=== PATIENT | male | born 1930 ===

== ENCOUNTER 2019-04-26 08:49 | Emergency (ER) | payer MEDICARE ==
--- NOTE | 2019-04-26 09:26 | ED ---
Altered Mental Status - HPI Summary HPI Summary: 89 year old M arriving via ambulance from [facility] complains of altered mental status for 3 days. Patient is less agitated than baseline per [facility] staff which is abnormal for him. Patient usually agitated with staff during vital sign checks. EMS reports decreased appetite. Symptoms aggravated by nothing. Symptoms alleviated by nothing. Medications reviewed. On antidepressant. No Hx atrial fibrillation. Hx constipation, depression, dementia, hypothyroidism, herpesviral vesicular dermatitis, bullous pemphigoid. - History Of Current Complaint Chief Complaint: EDAltMentalStatus Stated Complaint: GENERAL ILLNESS/AMS PER EMS Time Seen by Provider: 04/26/19 09:04 Hx Obtained From: EMS, Other: - [facility] staff Onset/Duration: Still Present Timing: Constant, Lasting Days - 3 Aggravating Factor(s): Nothing Alleviating Factor(s): Nothing - Allergies/Home Medications Allergies/Adverse Reactions: Allergies Allergy/AdvReac Type Severity Reaction Status Date / Time No Known Allergies Allergy Verified 04/26/19 09:13 PMH/Surg Hx/FS Hx/Imm Hx Previously Healthy: No - hx hypothyroidism, herpesviral vesicular dermatitis, bullous pemphigoid Endocrine/Hematology History: Reports: Hx Thyroid Disease - HYPO, Other Endocrine/Hematological Disorders - vitamin D deficiency Cardiovascular History: Denies: Hx Atrial Fibrillation Neurological History: Reports: Hx Dementia Psychiatric History: Reports: Hx Depression, Other Psychiatric Issues/Disorders - insomnia Infectious Disease History: Unable to Obtain/Confirm Infectious Disease History: Denies: Traveled Outside the [place] in Last 30 Days - Family History Known Family History: Positive: Unknown - secondary to hx dementia - Social History Alcohol Use: None Hx Substance Use: No Substance Use Type: Reports: None Hx Tobacco Use: No Smoking Status (MU): Unknown if Ever Smoked Review of Systems Positive: Other - decreased appetite Neurological: Other - altered mental status All Other Systems Reviewed And Are Negative: Yes Physical Exam - Summary Physical Exam Summary: Constitutional: Elderly, Alert. (-) Distressed Skin: Warm, Dry HENT: Normocephalic; Atraumatic Eyes: Conjunctiva normal Neck: Musculoskeletal ROM normal neck. (-) JVD, (-) Stridor, (-) Nuchal rigidity Cardio: Rhythm irregular, rate normal, Heart sounds normal; Intact distal pulses ; Radial pulses are 2+ and symmetric. (-) Murmur Pulmonary/Chest wall: Effort normal. (-) Respiratory distress, (-) Wheezes, (-) Rales Abd: Soft, (-) tenderness, mild distension, (-) Guarding, (-) Rebound Musculoskeletal: (-) Edema Lymph: (-) Cervical adenopathy Neuro: Alert, Oriented to person but not place or time, answers in one-word yes or no responses, no focal deficits, minimally cooperative with neuro exam Psych: Mood and affect Normal GCS: 13 Triage Information Reviewed: Yes Vital Signs On Initial Exam: Initial Vitals Temp Pulse Resp BP Pulse Ox 96.9 F 103 19 132/103 94 04/26/19 09:09 04/26/19 09:09 04/26/19 09:09 04/26/19 09:09 04/26/19 09:09 Vital Signs Reviewed: Yes Procedures - Sedation Patient Received Moderate/Deep Sedation with Procedure: No Diagnostics - Vital Signs Vital Signs Temp Pulse Resp BP Pulse Ox 04/26/19 09:09 96.9 F 103 19 132/103 94 - Laboratory Result Diagrams: 04/26/19 09:47 04/26/19 09:47 Lab Statement: Any lab studies that have been ordered have been reviewed, and results considered in the medical decision making process. - Radiology CXR Radiology Interpretation Completed By: Radiologist Summary of Radiographic Findings: LOW LUNG VOLUMES WITH PATCHY ATELECTASIS VERSUS CONSOLIDATION OF THE LEFT LUNG BASE. ED physician has reviewed this imaging report. - CT Brain CT Interpretation Completed By: Radiologist Summary of CT Findings: 1. NO EVIDENCE FOR ACUTE INTRACRANIAL ABNORMALITY. 2. 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 3. EFFUSION WITHIN THE RIGHT MASTOID AIR CELLS. ED physician has reviewed this imaging report. - EKG 1017 Cardiac Rate: NL - 79 BPM EKG Rhythm: Sinus Rhythm Summary of EKG Findings: An EKG at 1017 reveals normal sinus rhythm 79 BPM. There is significant artifact obscuring further interpretation. No STEMI. No acute changes. ED physician has reviewed and interpreted this EKG. Re-Evaluation - Re-Evaluation First Eval Re-Evaluation Time: 11:10 Change: Improved - HR low 100's, CXR w LLL PNA. Given azithro and ceftriaxone. Trop 0.03 Second Eval Re-Evaluation Time: 12:42 Comment: spoke with sister Tete who is next of kin. she states that she hasn' t talked to patient in a year and is unsure of his wishes and will have to take some time to think about his wishes Third Eval Re-Evaluation Time: 12:45 Comment: spoke with Dr. Sanchez nephrology at [facility] who accepts patient for transfer, requests patient on maintenance fluids and rivero, would like patient to be accepted to ICU. [facility] ICU will call back Fourth Eval Re-Evaluation Time: 13:15 Comment: spoke with Dr. Kirkland ICU at [facility] who accepts patient. they will call back with a bed assignment Altered Mental Statu Course/Dx - Course Course Of Treatment: 89 y/o male w hx dementia, hypothyroidism pw AMS. - head CT w/o acute pathology, CXR w ?LLL PNA. Given azithro/ceftriaxone. -Labs notable for new onset renal failure with a creatinine of 15, potassium 7.2. BUN 113 likely contributing to AMS/somnolence. Patient is given insulin, glucose, albuterol and calcium. Also noted to have TSH elevated at 7.9, free T4 0.92. - D/w sister Tete guarding intervention such as dialysis. She is unsure if he wanted at this time, but is open to the idea. We'll transport [facility]. Patient had greater than 900 cc of fluid on his bladder scan, likely urinary retention causing acute renal obstruction. Rivero placed. - Diagnoses Provider Diagnoses: Acute renal failure, Hyperkalemia, Altered mental status, Urinary retention - Critical Care Time Critical Care Time: 30-74 min - Upon my evaluation, this patient had a high probability of imminent or life-threatening deterioration due to acute renal failure, altered mental status which required my direct attention, intervention , and personal management. I have personally provided 70 minutes of critical care time exclusive of time spent on separately billable procedures. Time includes review of laboratory data, radiology results, discussion with consultants, and monitoring for potential decompensation. Interventions were performed as documented above. Discharge ED - Sign-Out/Discharge Documenting (check all that apply): Patient Departure - Discharge Plan Condition: Stable Disposition: TRANS HIGHER LVL OF CARE FAC Referrals: No Primary Care Phys,NOPCP [Medical Doctor] - - Billing Disposition and Condition Condition: STABLE Disposition: Trans Higher Lvl of Care Fac - Attestation Statements Document Initiated by Scribe: Yes Documenting Scribe: Malena Bradford Provider For Whom Scribe is Documenting (Include Credential): Nato Guaman MD Scribe Attestation: I, Malena Bradford, scribed for Nato Guaman MD on 04/26/19 at 1354. Scribe Documentation Reviewed: Yes Provider Attestation: The documentation as recorded by the scribeMalena accurately reflects the service I personally performed and the decisions made by Nato keita MD Status of Scribe Document: Viewed
[2019-04-26 09:58] LABS: ABS Basophils 0.1 10^3/ul (0-0.2); ABS Lymphocytes 1.2 10^3/ul (1.0-4.8); ABS Monocytes 0.7 10^3/ul (0-0.8); ABS Neutrophils 7.9 10^3/ul (1.5-7.7); Eosinophil % 0.1 %; Hematocrit 40 % (42-52); Hemoglobin 13.7 g/dL (14.0-18.0); Lymphocyte % 12.5 %; Mean Corpuscular HGB Conc 34 g/dL (31-36); Mean Corpuscular Hemoglobin 33 pg (27-31); Mean Corpuscular Volume 98 fL (80-94); Platelet Count 393 10^3/uL (150-450); Red Cell Distribution Width 14 % (10-15)
[2019-04-26] MEDS ORDERED: NS 0.9% 1000 ML** 1,000 ML IV ONE (10:12)
[2019-04-26 10:20] LABS: Troponin I 0.03 ng/mL (<0.03)
[2019-04-26 10:42] LABS: TSH (Thyroid Stimulating Horm) 7.97 mcIU/mL (0.34-5.60)
[2019-04-26] MEDS ORDERED: Azithromycin 500 mg/250 ml NS 500 MG/250 ML BAG IVPB ONE (11:13)
[2019-04-26 11:37] LABS: T4, Total 3.55 mcg/dL (6.09-12.23)
[2019-04-26 11:40] LABS: Albumin 3.1 g/dL (3.2-5.2); CO2 Carbon Dioxide 20 mmol/L (22-32); Calcium 9.5 mg/dL (8.6-10.3); Chloride 96 mmol/L (101-111); Sodium 134 mmol/L (135-145)
[2019-04-26 11:43] LABS: Anion Gap 18 mmol/L (2-11)
[2019-04-26 11:44] LABS: Potassium 7.2 mmol/L (3.5-5.0); Salicylate < 2.50 mg/dL (<30)
[2019-04-26 11:46] LABS: ALT 7 U/L (7-52); AST 9 U/L (13-39); Alkaline Phosphatase 78 U/L (34-104); BUN/Creatinine Ratio 7.4 (8-20); Blood Urea Nitrogen 113 mg/dL (6-24); EGFR African American 3.7 (>60); Glucose 88 mg/dL (70-100)
[2019-04-26] MEDS ORDERED: Albuterol/Ipratropium NEB.SOL* Albuterol 2.5 MG/Ipratropium 0.5 MG 3 ML INH ONE (11:52)
[2019-04-26] MEDS ORDERED: cefTRIAXone(*) 1 GM in NS 0.9% 50 ML* 50 ML IVPB ONE (12:00)
[2019-04-26 12:25] LABS: Albumin/Globulin Ratio 0.9 (1-3); Globulin 3.3 g/dL (2-4); Total Protein 6.4 g/dL (6.4-8.9)
[2019-04-26] MEDS ORDERED: Calcium Gluconate INJ* 1 GM in NS 0.9% 100 ML* 100 ML IVPB ONE (12:26)
[2019-04-26] MEDS ORDERED: Insulin REGULAR(*) 1 UNITS UNIT IV PUSH ONE (12:26)
[2019-04-26] MEDS ORDERED: Dextrose 50% VIAL 50 ml IV ONE (12:30)
[2019-04-26] MEDS ORDERED: NS 0.9% 100 ML* 100 ML ONE (12:37)
[2019-04-26] MEDS ORDERED: NS 0.9% 1000 ML** 1,000 ML IV SCH (13:00)
[2019-04-26] MEDS ORDERED: Dextrose 50% Syringe 50 ML* 25 GM/50 ML SYRINGE IV PUSH ONE (13:00)
[2019-04-26 13:03] LABS: Free T4 0.92 ng/dL (0.61-1.12)
[2019-04-26 14:49] LABS: Urine Appearance Cloudy; Urine Bilirubin Negative (Negative); Urine Blood 3+ (Negative); Urine Glucose 1+(50 mg/dL) (Negative); Urine Ketones Negative (Negative); Urine Nitrite Negative (Negative); Urine Protein 2+(100 mg/dL) (Negative); Urine Specific Gravity 1.009 (1.010-1.030); Urine Urobilinogen Negative (Negative)
[2019-04-26 14:51] LABS: Urine Bacteria Absent (Absent); Urine Red Blood Cell 3+(>10/hpf) (Absent); Urine White Blood Cell 3+(>20/hpf) (Absent)
[2019-04-26 15:22] LABS: Urine Color Red
[2019-04-26 16:16] VITALS: BP 120/61
[2019-04-26] MEDS ORDERED: Dextrose 50% Syringe 50 ML* 25 GM/50 ML SYRINGE ONE (16:26)
== END 2019-04-26 16:16 | disposition short-term general hospital (02) ==
LOC: ED 08:49
DX: N17.9 Acute kidney failure, unspecified (principal); E87.5 Hyperkalemia; R41.82 Altered mental status, unspecified; R33.9 Retention of urine, unspecified; E03.9 Hypothyroidism, unspecified; F03.90 Unspecified dementia, unspecified severity, without behavioral disturbance, psychotic disturbance, mood disturbance, and anxiety; F32.9 Major depressive disorder, single episode, unspecified; G47.00 Insomnia, unspecified
CPT/HCPCS: 36415; 70450; 71045; 80053; 80329; 81003; 81015; 83605; 84436; 84439; 84443; 84484; 85025; 87040; 87086; 93005; 96361; 96365; 96368; 96375; 99284; A9270-GY; G0480; J0456; J0610; J0696

== ENCOUNTER 2019-11-07 01:40 | Inpatient (IN) ==
[2019-11-07 02:27] LABS: ABS Lymphocytes 0.2 10^3/ul (1.0-4.8); ABS Monocytes 0.1 10^3/ul (0-0.8); ABS Neutrophils 6.2 10^3/ul (1.5-7.7); Hematocrit 38 % (42-52); Lymphocyte % 3.2 %; Mean Corpuscular HGB Conc 34 g/dL (31-36); Mean Corpuscular Hemoglobin 31 pg (27-31); Mean Corpuscular Volume 91 fL (80-94); Mean Platelet Volume 6.9 fL (7.4-10.4); Nucleated Red Blood Cells % 0.1; Platelet Count 237 10^3/uL (150-450); Red Blood Count 4.15 10^6 /uL (4.18-5.48); Red Cell Distribution Width 16 % (10-15); White Blood Count 6.5 10^3/uL (3.5-10.8)
[2019-11-07 02:42] LABS: ALT 29 U/L (7-52); AST 51 U/L (13-39); Albumin 3.3 g/dL (3.2-5.2); Albumin/Globulin Ratio 0.9 (1-3); Alkaline Phosphatase 100 U/L (34-104); Anion Gap 16 mmol/L (2-11); BUN/Creatinine Ratio 14.2 (8-20); Blood Urea Nitrogen 32 mg/dL (6-24); CO2 Carbon Dioxide 17 mmol/L (22-32); Calcium 9.6 mg/dL (8.6-10.3); Chloride 104 mmol/L (101-111); EGFR African American 33.5 (>60); EGFR Non-African American 27.7 (>60); Globulin 3.5 g/dL (2-4); Glucose 103 mg/dL (70-100); Potassium 4.5 mmol/L (3.5-5.0); Sodium 137 mmol/L (135-145); Total Protein 6.8 g/dL (6.4-8.9)
[2019-11-07 02:47] LABS: Troponin I 0.07 ng/mL (<0.03)
[2019-11-07] MEDS: NS 0.9% 1000 ml BAG 2,000 ML IV ONE ×2 (02:51→04:25)
[2019-11-07 04:05] LABS: Urine Appearance Turbid; Urine Bilirubin Negative (Negative); Urine Blood 3+ (Negative); Urine Color Yellow; Urine Glucose Negative (Negative); Urine Ketones Trace (Negative); Urine Nitrite Negative (Negative); Urine Protein 2+(100 mg/dL) (Negative); Urine Specific Gravity 1.013 (1.010-1.030); Urine Urobilinogen Negative (Negative)
[2019-11-07] MEDS ORDERED: cefTRIAXone 1 gm/50 mL NS BAG 1 GM/50 ML BAG IV ONE (04:12)
[2019-11-07 04:41] LABS: Activated Partial Thrombo Time 32.2 seconds (26.0-38.0); INR 1.25 (0.82-1.09)
[2019-11-07 04:54] LABS: Troponin I 0.08 ng/mL (<0.03)
[2019-11-07] MEDS ORDERED: NS 0.9% 1000 ml BAG 1,000 ML IV ONE ×2 (05:06→23:00)
[2019-11-07 06:11] LABS: Urine Bacteria Absent (Absent); Urine Red Blood Cell 3+(>10/hpf) (Absent); Urine White Blood Cell 3+(>20/hpf) (Absent)
[2019-11-07] MEDS ORDERED: NS 0.9% 1000 ml BAG 1,000 ML IV SCH (06:30)
[2019-11-07] MEDS: Norepinephrine 16MCG/ML IVPRE 4,000 MCG/250 ML BAG IV SCH ×4 (06:33→15:14)
[2019-11-07] MEDS: Heparin 5000 UNITS/ML 1 mL VIAL SUBCUT SCH ×2 (08:50→21:04)
[2019-11-07] MEDS: Levothyroxine 100 MCG/5 ML VIAL IV SCH (08:56)
[2019-11-07] MEDS ORDERED: cefTRIAXone 1 gm/50 mL NS BAG 1 GM/50 ML BAG IVPB ONE (09:00)
[2019-11-07] MEDS: Lactated Ringers 1000 ml BAG 1,000 ML IV SCH ×2 (10:09→18:07)
[2019-11-07 10:57] LABS: Troponin I 0.17 ng/mL (<0.03)
[2019-11-07] MEDS: Hydrocortisone INJ 100 MG/2ML 2 ML VIAL IV SCH ×3 (11:57→23:05)
[2019-11-07 13:46] LABS: BUN/Creatinine Ratio 18.2 (8-20); Calcium 7.6 mg/dL (8.6-10.3); EGFR African American 41.4 (>60); EGFR Non-African American 34.2 (>60); Potassium 4.1 mmol/L (3.5-5.0)
[2019-11-07] MEDS ORDERED: Nitro 2% OINT (Nitroglycerin) 1 INCH/PAK ONE (16:20)
[2019-11-07 17:09] LABS: Troponin I 0.37 ng/mL (<0.03)
[2019-11-07] MEDS: Meropenem 500MG PREMIX(*) 500 MG/50 ML BAG IV SCH (18:07)
[2019-11-07] MEDS ORDERED: Ondansetron 4 mg VIAL 2 MG/ML 2 ml VIAL IV ONE (23:11)
[2019-11-07] MEDS ORDERED: Ondansetron 4 mg VIAL 2 MG/ML 2 ml VIAL ONE (23:14)
[2019-11-07 23:23] LABS: Hematocrit 35 % (42-52); Hemoglobin 11.4 g/dL (14.0-18.0); Mean Corpuscular HGB Conc 32 g/dL (31-36); Mean Corpuscular Hemoglobin 30 pg (27-31); Mean Corpuscular Volume 94 fL (80-94); Mean Platelet Volume 7.2 fL (7.4-10.4); Platelet Count 124 10^3/uL (150-450); Red Blood Count 3.75 10^6 /uL (4.18-5.48); Red Cell Distribution Width 18 % (10-15)
[2019-11-07 23:31] LABS: Albumin 2.8 g/dL (3.2-5.2); Calcium 7.6 mg/dL (8.6-10.3); Potassium 4.7 mmol/L (3.5-5.0); Total Bilirubin 0.4 mg/dL (0.2-1.0)
[2019-11-07 23:36] LABS: BUN/Creatinine Ratio 22.9 (8-20); EGFR African American 50.7 (>60); EGFR Non-African American 41.9 (>60); Globulin 2.8 g/dL (2-4); Total Protein 5.6 g/dL (6.4-8.9)
[2019-11-07] MEDS ORDERED: Lactated Ringers 1000 ml BAG 1,000 ML IV ONE (23:45)
[2019-11-08] MEDS: Norepinephrine 16MCG/ML IVPRE 4,000 MCG/250 ML BAG IV SCH ×7 (02:57→22:01)
[2019-11-08] MEDS: Lactated Ringers 1000 ml BAG 1,000 ML IV SCH ×3 (02:57→18:06)
[2019-11-08] MEDS: Vitamins A & D OINT 42.5 GM TUBE TOPICAL PRN ×2 (03:21→21:55)
[2019-11-08] MEDS ORDERED: cefTRIAXone 1 gm/50 mL NS BAG 1 GM/50 ML BAG IVPB SCH (05:00)
[2019-11-08] MEDS: Hydrocortisone INJ 100 MG/2ML 2 ML VIAL IV SCH ×3 (05:21→21:48)
[2019-11-08] MEDS: Levothyroxine 100 MCG/5 ML VIAL IV SCH (05:22)
[2019-11-08 05:37] LABS: Hematocrit 32 % (42-52); Hemoglobin 10.6 g/dL (14.0-18.0); Mean Corpuscular HGB Conc 33 g/dL (31-36); Mean Corpuscular Hemoglobin 31 pg (27-31); Mean Corpuscular Volume 93 fL (80-94); Mean Platelet Volume 7.5 fL (7.4-10.4); Platelet Count 123 10^3/uL (150-450); Red Blood Count 3.45 10^6 /uL (4.18-5.48); Red Cell Distribution Width 17 % (10-15); White Blood Count 32.6 10^3/uL (3.5-10.8)
[2019-11-08 05:50] LABS: ABS Basophils 0.1 10^3/ul (0-0.2); ABS Eosinophils 0.2 10^3/ul (0-0.6); ABS Lymphocytes 0.9 10^3/ul (1.0-4.8); ABS Monocytes 1.3 10^3/ul (0-0.8); ABS Neutrophils 31.5 10^3/ul (1.5-7.7); Eosinophil % 0.6 %; Lymphocyte % 2.6 %
[2019-11-08 05:52] LABS: Albumin 2.5 g/dL (3.2-5.2); Albumin/Globulin Ratio 0.9 (1-3); BUN/Creatinine Ratio 24.4 (8-20); Calcium 7.3 mg/dL (8.6-10.3); EGFR African American 60.4 (>60); EGFR Non-African American 49.9 (>60); Globulin 2.9 g/dL (2-4); Potassium 4.6 mmol/L (3.5-5.0); Total Bilirubin 0.3 mg/dL (0.2-1.0); Total Protein 5.4 g/dL (6.4-8.9)
[2019-11-08] MEDS: Meropenem 500MG PREMIX(*) 500 MG/50 ML BAG IV SCH ×2 (06:08→18:13)
[2019-11-08] MEDS ORDERED: Lactated Ringers 1000 ml BAG 1,000 ML IV ONE (06:30)
[2019-11-08 06:31] LABS: ABS Eosinophils 0.1 10^3/ul (0-0.6); ABS Lymphocytes 0.7 10^3/ul (1.0-4.8); ABS Neutrophils 30.7 10^3/ul (1.5-7.7); Eosinophil % 0.4 %; Lymphocyte % 2.2 %
[2019-11-08] MEDS: Heparin 5000 UNITS/ML 1 mL VIAL SUBCUT SCH ×2 (08:29→21:50)
[2019-11-08] MEDS ORDERED: Amikacin IV 500 MG/2 ML VIAL IVPB ONE (08:39)
[2019-11-08] MEDS ORDERED: NS 0.9% IVPB ONE (09:00)
[2019-11-08] MEDS ORDERED: AMIKACIN IVPB ONE (09:00)
[2019-11-08] MEDS ORDERED: cefTRIAXone 2 GM ADDV.VIAL 2 GM in NS 0.9% 100 ml BAG 100 ML IV SCH (09:00)
[2019-11-08] MEDS ORDERED: Lidocaine 4% GEL 10 GM TUBE TOPICAL ONE (09:36)
[2019-11-08] MEDS ORDERED: Haloperidol 5 mg/ml SDV IV/IM 5 MG/ML AMP ONE (11:03)
[2019-11-08] MEDS ORDERED: fentaNYL 100 mcg/2 ml 50 MCG/ML VIAL ONE (11:46)
[2019-11-08] MEDS ORDERED: Lorazepam PYXIS KEY ONE (12:07)
[2019-11-08] MEDS ORDERED: LORazepam 2 mg VIAL 1 ml ONE (12:07)
[2019-11-08] MEDS: Pantoprazole VIAL 40 MG VIAL IV SCH (16:03)
[2019-11-08] MEDS ORDERED: Perflutren Lipid Microsphere 3 ML VIAL ONE (16:14)
[2019-11-08] MEDS ORDERED: Albuterol/Ipratropium NEB.SOL (2.5/0.5 MG) 3 ML NEB.SOLN INH PRN (18:17)
[2019-11-08] MEDS ORDERED: Albuterol/Ipratropium NEB.SOL (2.5/0.5 MG) 3 ML NEB.SOLN ONE (18:26)
[2019-11-08] MEDS ORDERED: Hydrocortisone INJ 100 MG/2ML 2 ML VIAL IM SCH (19:00)
[2019-11-08] MEDS: Acetaminophen IV 1 GM/100ML 100 ML IVPB SCH (21:44)
[2019-11-09] MEDS: Atropine 1% (ORAL/SL) 15 ML BTL SL PRN (04:04)
[2019-11-09] MEDS: Lactated Ringers 1000 ml BAG 1,000 ML IV SCH (04:59)
[2019-11-09] MEDS: Norepinephrine 16MCG/ML IVPRE 4,000 MCG/250 ML BAG IV SCH (05:51)
[2019-11-09] MEDS: Hydrocortisone INJ 100 MG/2ML 2 ML VIAL IV SCH ×3 (05:59→20:12)
[2019-11-09] MEDS: Acetaminophen IV 1 GM/100ML 100 ML IVPB SCH ×2 (06:21→14:11)
[2019-11-09] MEDS: Levothyroxine 100 MCG/5 ML VIAL IV SCH (06:26)
[2019-11-09] MEDS: Meropenem 500MG PREMIX(*) 500 MG/50 ML BAG IV SCH (06:42)
[2019-11-09 07:00] LABS: BUN/Creatinine Ratio 34.6 (8-20); EGFR African American 108.8 (>60); EGFR Non-African American 89.9 (>60); Magnesium 1.5 mg/dL (1.9-2.7); Potassium 3.6 mmol/L (3.5-5.0)
[2019-11-09 07:10] LABS: Hematocrit 29 % (42-52); Hemoglobin 9.9 g/dL (14.0-18.0); Mean Corpuscular HGB Conc 34 g/dL (31-36); Mean Corpuscular Hemoglobin 31 pg (27-31); Mean Corpuscular Volume 91 fL (80-94); Red Blood Count 3.21 10^6 /uL (4.18-5.48); Red Cell Distribution Width 17 % (10-15); White Blood Count 30.8 10^3/uL (3.5-10.8)
[2019-11-09] MEDS ORDERED: Magnesium Sulf 4 GM/100 ML IV 4,000 MG/100 ML BAG IVPB ONE (07:28)
[2019-11-09 07:49] LABS: Calcium 5.7 mg/dL (8.6-10.3)
[2019-11-09 08:33] LABS: ABS Basophils 0.1 10^3/ul (0-0.2); ABS Eosinophils 0.2 10^3/ul (0-0.6); ABS Lymphocytes 0.7 10^3/ul (1.0-4.8); ABS Monocytes 0.6 10^3/ul (0-0.8); ABS Neutrophils 29.1 10^3/ul (1.5-7.7); Eosinophil % 0.7 %; Lymphocyte % 2.4 %; Platelet Count 73 10^3/uL (150-450)
[2019-11-09] MEDS: Heparin 5000 UNITS/ML 1 mL VIAL SUBCUT SCH ×2 (08:38→20:12)
[2019-11-09] MEDS: Pantoprazole VIAL 40 MG VIAL IV SCH (08:38)
[2019-11-09] MEDS ORDERED: Potassium Chloride LIQUID 20 MEQ/15 ML LIQUID PO ONE (08:40)
[2019-11-09] MEDS: KCL 20 MEQ/100 ML IVPREMIX 20 MEQ/100 ML BAG IV SCH ×2 (10:20→12:48)
[2019-11-09] MEDS: Albuterol/Ipratropium NEB.SOL (2.5/0.5 MG) 3 ML NEB.SOLN INH SCH ×2 (10:30→15:49)
[2019-11-09] MEDS: Vitamins A & D OINT 42.5 GM TUBE TOPICAL PRN (11:04)
[2019-11-09] MEDS: Meropenem 1 GM PREMIX(*) 1 GM/50 ML BAG IV SCH ×2 (13:04→22:11)
[2019-11-09] MEDS ORDERED: Norepinephrine 16MCG/ML IVPRE 4,000 MCG/250 ML BAG IV SCH (13:19)
[2019-11-09] MEDS ORDERED: Lactated Ringers 1000 ml BAG 1,000 ML IV SCH (18:00)
[2019-11-09] MEDS ORDERED: Albuterol/Ipratropium NEB.SOL (2.5/0.5 MG) 3 ML NEB.SOLN ONE (19:19)
[2019-11-10] MEDS: Albuterol/Ipratropium NEB.SOL (2.5/0.5 MG) 3 ML NEB.SOLN INH SCH ×4 (00:50→09:25)
[2019-11-10] MEDS: Nystatin TOP POWDER 15 GM BTL TOPICAL SCH ×4 (02:19→21:35)
[2019-11-10] MEDS: Hydrocortisone INJ 100 MG/2ML 2 ML VIAL IV SCH (04:20)
[2019-11-10] MEDS: Levothyroxine 100 MCG/5 ML VIAL IV SCH ×2 (04:20→05:02)
[2019-11-10] MEDS ORDERED: Furosemide 40 mg/4 ml IV VIAL IV ONE (04:44)
[2019-11-10 04:55] LABS: Hematocrit 30 % (42-52); Hemoglobin 10.2 g/dL (14.0-18.0); Mean Corpuscular HGB Conc 34 g/dL (31-36); Mean Corpuscular Hemoglobin 31 pg (27-31); Mean Corpuscular Volume 92 fL (80-94); Mean Platelet Volume 8.6 fL (7.4-10.4); Platelet Count 81 10^3/uL (150-450); Red Cell Distribution Width 17 % (10-15); White Blood Count 28.2 10^3/uL (3.5-10.8)
[2019-11-10 05:01] LABS: BUN/Creatinine Ratio 36.1 (8-20); Calcium 7.5 mg/dL (8.6-10.3); EGFR African American 69.8 (>60); EGFR Non-African American 57.7 (>60); Magnesium 2.8 mg/dL (1.9-2.7); Phosphorus 1.9 mg/dL (2.5-5.0); Potassium 4.6 mmol/L (3.5-5.0)
[2019-11-10] MEDS: Meropenem 1 GM PREMIX(*) 1 GM/50 ML BAG IV SCH ×2 (05:24→18:19)
[2019-11-10 06:24] LABS: ABS Basophils 0.1 10^3/ul (0-0.2); ABS Lymphocytes 0.6 10^3/ul (1.0-4.8); ABS Monocytes 0.5 10^3/ul (0-0.8); Lymphocyte % 2.3 %
[2019-11-10] MEDS: Pantoprazole VIAL 40 MG VIAL IV SCH (08:35)
[2019-11-10] MEDS: Heparin 5000 UNITS/ML 1 mL VIAL SUBCUT SCH ×2 (08:35→21:20)
[2019-11-10] MEDS ORDERED: Haloperidol 5 mg/ml SDV IV/IM 5 MG/ML AMP ONE (09:16)
[2019-11-10] MEDS ORDERED: Haloperidol 5 mg/ml SDV IV/IM 5 MG/ML AMP IV SLOW PU PRN (09:16)
[2019-11-10] MEDS ORDERED: Albuterol/Ipratropium NEB.SOL (2.5/0.5 MG) 3 ML NEB.SOLN INH ONE (09:24)
[2019-11-10] MEDS ORDERED: Albuterol/Ipratropium NEB.SOL (2.5/0.5 MG) 3 ML NEB.SOLN ONE (09:38)
[2019-11-10] MEDS ORDERED: methylPREDNISolone 125 mg 2 ML VIAL IV ONE (11:39)
[2019-11-11] MEDS: Atropine 1% (ORAL/SL) 15 ML BTL SL PRN (02:34)
[2019-11-11 04:39] LABS: BUN/Creatinine Ratio 39.6 (8-20); Calcium 7.7 mg/dL (8.6-10.3); EGFR African American 75.6 (>60); EGFR Non-African American 62.5 (>60); Magnesium 2.5 mg/dL (1.9-2.7); Phosphorus 1.9 mg/dL (2.5-5.0); Potassium 4.6 mmol/L (3.5-5.0)
[2019-11-11 04:51] LABS: Hematocrit 28 % (42-52); Hemoglobin 9.5 g/dL (14.0-18.0); Mean Corpuscular HGB Conc 34 g/dL (31-36); Mean Corpuscular Hemoglobin 31 pg (27-31); Mean Corpuscular Volume 91 fL (80-94); Mean Platelet Volume 8.7 fL (7.4-10.4); Platelet Count 84 10^3/uL (150-450); Red Blood Count 3.07 10^6 /uL (4.18-5.48); Red Cell Distribution Width 17 % (10-15); White Blood Count 14.4 10^3/uL (3.5-10.8)
[2019-11-11] MEDS: Meropenem 1 GM PREMIX(*) 1 GM/50 ML BAG IV SCH ×2 (06:08→20:54)
[2019-11-11] MEDS: Levothyroxine 100 MCG/5 ML VIAL IV SCH (06:08)
[2019-11-11 06:57] LABS: ABS Lymphocytes 0.6 10^3/ul (1.0-4.8); ABS Monocytes 0.7 10^3/ul (0-0.8); ABS Neutrophils 13.1 10^3/ul (1.5-7.7); Nucleated Red Blood Cells % 0.1
[2019-11-11] MEDS: Nystatin TOP POWDER 15 GM BTL TOPICAL SCH ×3 (08:30→20:58)
[2019-11-11] MEDS: Vitamins A & D OINT 42.5 GM TUBE TOPICAL PRN (08:30)
[2019-11-11] MEDS: Heparin 5000 UNITS/ML 1 mL VIAL SUBCUT SCH ×2 (09:22→20:54)
[2019-11-11] MEDS: Pantoprazole VIAL 40 MG VIAL IV SCH (09:22)
[2019-11-11 11:21] LABS: Urine Appearance Cloudy; Urine Bilirubin Negative (Negative); Urine Blood 3+ (Negative); Urine Color Yellow; Urine Glucose Negative (Negative); Urine Ketones Negative (Negative); Urine Nitrite Negative (Negative); Urine Protein Negative (Negative); Urine Urobilinogen Negative (Negative)
[2019-11-11 11:27] LABS: Urine Bacteria Absent (Absent); Urine Red Blood Cell 3+(>10/hpf) (Absent); Urine Squamous Epithelial Cell Present (Absent); Urine White Blood Cell 3+(>20/hpf) (Absent)
[2019-11-11] MEDS ORDERED: Albuterol/Ipratropium NEB.SOL (2.5/0.5 MG) 3 ML NEB.SOLN INH SCH ×2 (13:00→17:00)
[2019-11-11] MEDS ORDERED: Acetaminophen IV 1 GM/100ML 100 ML IVPB ONE (15:51)
[2019-11-11] MEDS: Albuterol/Ipratropium NEB.SOL (2.5/0.5 MG) 3 ML NEB.SOLN INH SCH ×2 (19:32→19:34)
[2019-11-12] MEDS: Albuterol/Ipratropium NEB.SOL (2.5/0.5 MG) 3 ML NEB.SOLN INH SCH ×3 (01:48→13:00)
[2019-11-12] MEDS: Meropenem 1 GM PREMIX(*) 1 GM/50 ML BAG IV SCH (06:15)
[2019-11-12] MEDS: Levothyroxine 100 MCG/5 ML VIAL IV SCH (06:25)
[2019-11-12] MEDS: Pantoprazole VIAL 40 MG VIAL IV SCH (09:47)
[2019-11-12] MEDS: Heparin 5000 UNITS/ML 1 mL VIAL SUBCUT SCH ×2 (09:47→19:50)
[2019-11-12] MEDS: Nystatin TOP POWDER 15 GM BTL TOPICAL SCH ×3 (11:50→19:50)
[2019-11-12] MEDS ORDERED: Albuterol/Ipratropium NEB.SOL (2.5/0.5 MG) 3 ML NEB.SOLN INH PRN (15:32)
[2019-11-12] MEDS ORDERED: Piperacillin/Tazobac ADVAN 3.375 GM in NS 0.9% 100 ml BAG 100 ML IV SCH (17:00)
[2019-11-12] MEDS ORDERED: ZOSYN 3.375 GM x ONE DOSE over 30 miuntes IV (17:00)
[2019-11-13] MEDS: Nystatin TOP POWDER 15 GM BTL TOPICAL SCH ×5 (07:49→23:10)
[2019-11-13] MEDS: Heparin 5000 UNITS/ML 1 mL VIAL SUBCUT SCH ×2 (07:49→23:04)
[2019-11-13] MEDS: Pantoprazole VIAL 40 MG VIAL IV SCH (07:49)
[2019-11-13] MEDS: Haloperidol 5 mg/ml SDV IV/IM 5 MG/ML AMP IV SLOW PU PRN ×3 (08:00→23:04)
[2019-11-13] MEDS ORDERED: Lorazepam PYXIS KEY PRN ×2 (09:58→14:11)
[2019-11-13] MEDS: Morphine ORAL CONCENTRATE 5 MG/0.25 ML ORAL.SYRIN PO PRN ×4 (10:48→23:04)
[2019-11-13] MEDS: LORazepam 2 mg VIAL 1 ml IM PRN ×2 (10:56→15:50)
[2019-11-13] MEDS ORDERED: LORazepam 2 mg VIAL 1 ml IM PRN (14:11)
[2019-11-14] MEDS ORDERED: Scopolamine PATCH Remove NOTE PATCH OFF SCH (04:00)
[2019-11-14] MEDS: Morphine ORAL CONCENTRATE 5 MG/0.25 ML ORAL.SYRIN PO PRN ×2 (10:33→16:42)
[2019-11-14] MEDS: Heparin 5000 UNITS/ML 1 mL VIAL SUBCUT SCH ×2 (10:33→23:58)
[2019-11-14] MEDS: Pantoprazole VIAL 40 MG VIAL IV SCH (10:42)
[2019-11-14] MEDS: Nystatin TOP POWDER 15 GM BTL TOPICAL SCH ×3 (14:56→23:58)
[2019-11-15 03:18] VITALS: BP 135/55
[2019-11-15] MEDS: Pantoprazole VIAL 40 MG VIAL IV SCH (07:26)
[2019-11-15] MEDS: Heparin 5000 UNITS/ML 1 mL VIAL SUBCUT SCH (09:39)
[2019-11-15] MEDS: Morphine ORAL CONCENTRATE 5 MG/0.25 ML ORAL.SYRIN PO PRN (09:41)
[2019-11-15] MEDS: Nystatin TOP POWDER 15 GM BTL TOPICAL SCH ×2 (09:44→14:02)
[2019-11-15] MEDS ORDERED: Senna TAB 8.6 mg TAB PO SCH (21:00)
== END 2019-11-15 18:30 | DRG 871 ==
LOC: ED 01:40 → ICU 06:45 → MED 11-11 15:50
PROVIDERS: ADMIT Student in an Organized Health Care Education/Training Program; ATTEND Internal Medicine